=== PATIENT | female | born 1975 | race Caucasian/White ===

== ENCOUNTER 2019-08-28 14:23 | Outpatient (CLI) | payer BC, SELFPAY ==
[2019-08-28 17:03] LABS: Basophils Percent Auto 0.4 % (0.2-1.2); Eosinophils Absolute Auto 0.1 K/mm3 (0-0.3); Eosinophils Percent Auto 1.2 % (0-4.4); Hematocrit 40.6 % (37.0-47.0); Immature Granulocyte Absolute 0.04 K/mm3 (0.00-0.031); Immature Granulocyte Percent A 0.4 % (0-0.5); Lymphocytes Absolute Auto 2.58 K/mm3 (0.9-3.2); Lymphocytes Percent Auto 27.8 % (18.3-44.2); Mean Corpuscular Hemoglobin 29.7 pg (26-34); Mean Corpuscular Volume 92.9 fl (80-100); Mean Platelet Volume 10.5 fl (7.4-10.4); Monocytes Absolute Auto 0.5 K/mm3 (0.1-0.6); Monocytes Percent Auto 5.2 % (2.6-8.5); Platelet Count Result 284 k/mm3 (150-375); Red Blood Count 4.37 M/mm3 (4.2-5.4); Red Cell Distribution Width 14.1 % (11.5-14.5); White Blood Count 9.3 K/mm3 (4.5-10.0)
[2019-08-28 17:16] LABS: D Dimer 0.27 ug/mL (<0.48)
== END 2019-08-28 14:24 | disposition home or self-care (01) ==
PROVIDERS: PCP Registered Nurse; Visit Provider Registered Nurse
DX: M79.604 Pain in right leg (principal)
CPT/HCPCS: 36415; 83735; 85025; 85380

== ENCOUNTER 2019-08-30 13:09 | Outpatient (CLI) | payer BC, SELFPAY ==
[2019-08-30 13:53] LABS: Alanine Aminotransferase 24 U/L (4-35); Albumin Level 4.3 g/dL (3.5-5.1); Alkaline Phosphatase 57 U/L (38-126); Aspartate Amino Transferase 29 U/L (14-36); Bilirubin,Total 0.2 mg/dL (0.2-1.3); Blood Urea Nitrogen 15 mg/dL (7-17); Calcium 9.1 mg/dL (8.4-10.2); Carbon Dioxide 25 mmol/L (22-30); Chloride 104 mmol/L (98-107); Estimated Glomerular Filt Rate > 60; Glucose 98 mg/dL (65-105); Potassium 3.9 mmol/L (3.4-5.0); Sodium 139 mmol/L (137-145)
== END 2019-08-30 13:10 | disposition home or self-care (01) ==
LOC: ANHLAB 13:12
PROVIDERS: PCP Registered Nurse; Visit Provider Registered Nurse
DX: M79.604 Pain in right leg (principal); R25.2 Cramp and spasm
CPT/HCPCS: 36415; 80053

== ENCOUNTER 2020-07-15 01:02 | Outpatient (CLI) | payer BC, SELFPAY ==
[2020-07-15 17:10] LABS: SARS-CoV-2 RNA PCR Negative
== END 2020-07-15 01:03 | disposition home or self-care (01) ==
LOC: ANHCOVIDDT 01:02
PROVIDERS: PCP Registered Nurse; Visit Provider Orthopaedic Surgery
DX: Z01.818 Encounter for other preprocedural examination (principal); Z20.828 Contact with and (suspected) exposure to other viral communicable diseases
CPT/HCPCS: 87635; C9803; U0003

== ENCOUNTER 2020-07-18 00:22 | Day surgery (SDC) | payer BC, SELFPAY ==
[2020-07-08 15:06] VITALS: BMI 25.9
--- NOTE | 2020-07-16 12:32 | WPDANESEPPF ---
Anes - Initial Pre Proc Eval Procedure: Operation Date: 07/18/20 10:30 Proposed Procedures p Left Anterior Tarsal Tunnel Release - Vipin Clark MD Date/Time: 07/16/20 12:32 Surgeon: Vipin Clark MD Pre Op Diagnosis: Left Anterior Tarsal Tunnel Syndrome Patient Data Age: 44 Gender: F Height: 1.7 m Weight: 75 kg Allergies Allergy/AdvReac Type Severity Reaction Status Date / Time codeine Allergy Mild Itching Verified 07/18/20 08:48 oxycodone Allergy Mild ITCHING Verified 07/18/20 08:48 butorphanol AdvReac Unknown FLOATS, Verified 07/18/20 08:48 SICK FEELING Home Medications Medication Instructions Recorded Confirmed Type galcanezumab-gnlm [Emgality Pen] 240 mg SUBCUT ONCE 07/08/20 07/18/20 History paroxetine HCl [Paxil] 20 mg PO QAM 07/08/20 07/18/20 History sumatriptan succinate [Imitrex] 100 mg PO ONCE 07/08/20 07/18/20 History ondansetron HCl [Zofran] 4 mg PO Q8H PRN #10 tablet 07/17/20 Rx tramadol 50 mg PO Q4H PRN #20 tablet 07/17/20 Rx Patient hx anesthesia problems: none Family hx anesthesia problems: none PMFSH Past Medical History Medical History Anxiety Depression Migraine Neuropathy of left superficial peroneal nerve Surgical History Surgical History History of hysterectomy Family History Family History Mother Diabetes mellitus Social History Social History Tobacco type: e-cigarettes/vaping Smoking end date: 07/19/11 Alcohol intake: current Substance use: never Living arrangements: with family Gender identity (if verbalized by the patient): Female Spiritual care concerns: No Anes - Eval Final PreProcedure Day of Procedure 07/16/20 12:32 Patient weight: overweight Heart: regular rate and rhythm Lungs: clear to auscultation and normal air movement Airway: Mallampati scale class II Neurological: alert and oriented Last oral intake: >/= 8 hours ASA classification: II Emergent: no Anesthetic plan: proceed Anesthesia type and monitoring: general LMA and standard monitoring Informed Consent: The patient's anesthetic plan and its attendant risks and benefits were discussed with the patient/family/POA. Questions were solicited and answers provided to the satisfaction of the patient/family/POA.
--- NOTE | 2020-07-16 12:49 | PM.IMHP ---
H&P: HPI History of Present Illness Date/Time: 07/16/20 12:49 Chief Complaint: Left ankle pain Narrative: Jailene Ashton is a 44 year old female With chronic left anterior ankle pain after injury. Patient non responsive to conservative treatment with physical therapy, bracing, home exercises. She responds well to cortisone injections of the anterior tarsal tunnel with approximately 3 to 4 months relief. Patient now presents for operative treatment having failed conservative treatment. Review of Systems Constitutional: Constitutional: Denies fever(s) Eyes: Eyes: Denies blurry vision ENT: Reports Normal hearing present Cardiovascular: Cardiovascular: Denies chest pain and Denies dyspnea Respiratory: Respiratory: Denies dyspnea and Denies wheezing Gastrointestinal: Gastrointestinal: Denies abdominal pain Genitourinary: Genitourinary: Denies urinary urgency Musculoskeletal: Musculoskeletal: Reports as per HPI and Denies numbness Integumentary/Breasts: Skin/Breast: Denies changing lesions and Denies sores Neurologic: Reports Normal hearing present, Denies behavioral changes, Denies confusion, Denies numbness and Denies convulsions Psychiatric: Psychiatric: Denies behavioral changes, Denies confusion and Denies hallucinations Endocrine: Endocrine: Denies heat intolerance Hematologic/Lymphatic: Hematologic/Lymphatic: Denies easy bleeding Allergic/Immunologic: Allergic/Immunologic: Denies wheezing PMF Past Medical History Medical History Anxiety Depression Migraine Neuropathy of left superficial peroneal nerve Surgical History Surgical History History of hysterectomy Family History Family History Mother Diabetes mellitus Social History Social History Tobacco type: e-cigarettes/vaping Smoking end date: 07/19/11 Alcohol intake: current Substance use: never Gender identity (if verbalized by the patient): Female Spiritual care concerns: No Meds Home Medications and Allergies Home Medications Medication Instructions Recorded Confirmed Type galcanezumab-gnlm [Emgality Pen] 240 mg SUBCUT ONCE 07/08/20 07/08/20 History paroxetine HCl [Paxil] 20 mg PO QAM 07/08/20 07/08/20 History sumatriptan succinate [Imitrex] 100 mg PO ONCE 07/08/20 07/08/20 History Allergies Allergy/AdvReac Type Severity Reaction Status Date / Time codeine Allergy Mild Itching Verified 07/08/20 15:08 oxycodone Allergy Mild ITCHING Verified 07/08/20 15:08 butorphanol AdvReac Unknown FLOATS, Verified 05/01/20 14:19 SICK FEELING Exam Const: General: No confusion Orientation/consciousness: No confusion HENMT: Head: normal to inspection, normocephalic and atraumatic Eyes: Conjunctivae: conjunctivae normal Sclera: sclerae normal Neck: Neck: supple and nontender Chest: Chest palpation & inspection: normal inspection of the chest Resp: Effort & Inspection: normal respiratory effort and no audible wheezes Cardio: Rate: regular rate Rhythm: regular rhythm : General: Yes deferred Skin: General skin exam: no rashes or lesions noted Neuro: General: No confusion Extrem: General: capillary refill normal Right upper extremity: normal to inspection Left upper extremity: normal to inspection Right lower extremity: normal to inspection, hip/thigh Details: normal to inspection, ankle Details: no tenderness and no swelling and foot Details: normal capillary refill, toes with normal ROM and vascular exam Details: dorsalis pedis pulse present and normal capillary refill Left lower extremity: hip/thigh Details: normal to inspection, knee Details: normal to inspection and knee ligament exam normal Details: anterior drawer test normal, valgus stress test normal, varus stress test gladis
--- NOTE | 2020-07-18 06:45 | WPDHPUPDATE1 ---
History and Physical Update Update Date/Time: 07/18/20 06:45 History and Physical has been reviewed, including an updated exam of the patient. There are NO changes in the patient's condition. Covid test negative. Risks, benefits, and alternatives have been discussed and questions answered. Patient agrees to proceed with procedure.
[2020-07-18 08:55] VITALS: BP 127/87; PULSE 94; RESP 16; TEMP 37.1; O2SAT 100
[2020-07-18 08:57] VITALS: BMI 27.7
[2020-07-18] MEDS: ACETAMINOPHEN 500 MG TABLET 1000 MG PO (09:22)
[2020-07-18] MEDS: KETOROLAC 15 MG/ML VIAL (*BKC) IV PUSH (09:23)
[2020-07-18] MEDS: LACTATED RINGERS 1,000 ML 30 ML IV CONT ×2 (09:24→11:12)
[2020-07-18] MEDS: ceFAZolin 2 GM/D5W 50 ML 2 GM/50 ML BAG IVPB (09:44)
[2020-07-18] MEDS: BUPIVACAINE HCL 0.5% PF 30 ML VIAL INFILTRATE (10:08)
[2020-07-18 11:00] VITALS: BP 127/73; PULSE 105; RESP 13; TEMP 36.3; O2SAT 100
[2020-07-18 11:15] VITALS: BP 125/71; PULSE 95; RESP 14; O2SAT 100
[2020-07-18 11:32] VITALS: BP 119/58; PULSE 79; RESP 15; O2SAT 98
[2020-07-18 11:35] VITALS: BP 119/76; PULSE 75; RESP 15
[2020-07-18 12:05] VITALS: BP 121/96; PULSE 101; RESP 15
--- NOTE | 2020-07-18 12:26 | SUR.PHASEII ---
POST-OP SHOE PLACED TO LEFT FOOT.
--- NOTE | 2020-07-18 13:15 | P.OP_ITS ---
Procedure Note - Detailed Date of procedure: 07/18/20 Pre-op diagnosis: Left Anterior Tarsal Tunnel Syndrome Post-op diagnosis: same Procedure performed: left ankle anterior tarsal tunnel release Description of procedure: Indications: Patient is a 44-year-old woman with left anterior tarsal tunnel syndrome and foot pain. Forefoot pain with positive injection of the anterior tarsal tunnel. She failed conservative treatment and presents for operative treatment. What was done: Informed consent given by the patient and operative extremity marked in preoperative holding area. Patient received intravenous antibiotics. Taken to the operating room and underwent general anesthesia by anesthesia team. Positioned supine on operating room table. Time-out performed confirming patient, site of surgery, planned. Left lower extremity prepped and draped in usual sterile surgical fashion using ChloraPrep skin solution. foot and ankle exsanguinated and a thigh tourniquet inflated to 250 mmHg. Local anesthetic with 0.5% Marcaine at the incision site. Fifteen blade knife used to make longitudinal incision over the anterolateral ankle and the anterior tarsal tunnel of the left ankle. Hemostasis controlled with electrocautery and bipolar cautery. Dissection carried down to the fascia which was incised in line with skin incision and retractors placed. Careful technique utilized with [place] elevator deep to the retinaculum and ligament divided in line with skin incision. Dissection from proximal to distal with protection of the neurovascular bundle. Tightness of the retinaculum noted. complete release of the nerve from proximal to distal ensured. Ankle taken through range of motion and no other areas of compression noted. Tourniquet released and Bleeding points controlled with bipolar cautery. Wound thoroughly irrigated with antibiotic solution. Subcutaneous tissue repaired with 3 O Monocryl interrupted suture. Skin repaired with 4 O Monocryl running suture. Bulky dressing applied. Patient woken from anesthesia, extubated, taken to recovery in stable condition. All sponge, needle, instrument counts correct at end of case. Implants: none Anesthesia: GLMA Surgeon: Vipin Clark MD Business Administration Program Chair: 1st water quality assistant Estimated blood loss (mL): 10 Tourniquet time (min): 45 Drains: No Packing: No Pathology: none sent Complications: None Condition: stable Disposition: PACU Findings: anterior ankle retinaculum with impingement of deep and superficial peroneal nerve.
== END 2020-07-18 12:27 | disposition home or self-care (01) ==
PROVIDERS: PCP Registered Nurse; Visit Provider Orthopaedic Surgery
PROC: (CPT 28035; principal; 2020-07-18 10:30)
DX: G57.52 Tarsal tunnel syndrome, left lower limb (principal); F41.8 Other specified anxiety disorders; Z87.891 Personal history of nicotine dependence
CPT/HCPCS: 28035; A9270; J0690; J1100; J1885; J2250; J2405; J2704; J3010; J7120

== ENCOUNTER 2020-10-09 17:06 | Outpatient (CLI) | payer BC, SELFPAY ==
[2020-10-09 17:21] LABS: Basophils Absolute Auto 0.04 K/mm3 (0.00-0.10); Basophils Percent Auto 0.6 % (0.0-1.0); Eosinophils Absolute Auto 0.11 K/mm3 (0.02-0.50); Eosinophils Percent Auto 1.6 % (1.0-6.0); Hematocrit 39.8 % (35.0-49.0); Immature Granulocyte Absolute 0.02 K/mm3 (0.00-0.00); Immature Granulocyte Percent A 0.3 % (0.0-0.0); Lymphocytes Absolute Auto 1.74 K/mm3 (1.10-4.50); Lymphocytes Percent Auto 24.6 % (18.0-42.0); Mean Corpuscular HGB Conc 32.7 g/dL (32.0-36.0); Mean Corpuscular Hemoglobin 30.2 pg (27.0-31.0); Mean Corpuscular Volume 92.6 fL (78.0-102.0); Mean Platelet Volume 9.9 fl (9.2-11.8); Monocytes Percent Auto 5.6 % (2.0-11.0); Neutrophils Absolute Auto 4.8 K/mm3 (1.7-7.2); Neutrophils Percent Auto 67.3 % (50.0-70.0); Platelet Count Result 286 K/mm3 (150-420); Red Cell Distribution Width 13.5 % (11.6-14.4); White Blood Count 7.1 K/mm3 (4.8-10.8)
[2020-10-09 17:24] LABS: Add Urine Microscopic? NO; Appearance Urine Clear (Clear); Bilirubin Urine Negative (Negative); Blood Urine Negative (Negative); Color Urine Yellow (Yellow); Glucose Urine UA Negative (Negative); Ketones Urine Negative (Negative); Leukocyte Esterase Ur Negative LEU/UL (Negative); Nitrate Urine Negative (Negative); Protein Urine Negative (Negative); Specific Grav Ur 1.015 (1.010-1.020); Urobilinogen Urine 0.2 mg/dL (0.2-1.0)
[2020-10-09 18:41] LABS: Alanine Aminotransferase 36 U/L (14-59); Albumin Level 3.9 g/dL (3.4-5.0); Alkaline Phosphatase 53 U/L (46-116); Anion Gap 9 mmol/L (8-16); Aspartate Amino Transferase 20 U/L (15-37); Bilirubin,Total 0.5 mg/dL (0.00-1.00); Blood Urea Nitrogen 16 mg/dL (7-18); Calcium 9.1 mg/dL (8.5-10.1); Carbon Dioxide 28 mmol/L (21-32); Chloride 101 mmol/L (98-108); Cholesterol 189 mg/dL (0-200); Estimated Glomerular Filt Rate > 60; Glucose 76 mg/dL (70-99); HDL Direct 66 mg/dL (40-60); LDL Cholesterol Calculated 102 mg/dL (<130); Osmolality Calculated 286 mOsm/kg (285-295); Sodium 138 mmol/L (136-145); Total Protein 6.5 g/dL (6.4-8.2); Triglycerides 106 mg/dL (0-150)
[2020-10-09 18:55] LABS: Free T4 Free Thyroxine Reflex 0.77 ng/dL (0.76-1.46); Thyroid Stimulating Hormone Reflex 0.29 u/IU/mL (0.36-3.74)
== END 2020-10-09 17:07 | disposition home or self-care (01) ==
LOC: CHSLAB 17:09
PROVIDERS: PCP Registered Nurse; Visit Provider Registered Nurse
DX: Z00.00 Encounter for general adult medical examination without abnormal findings (principal); Z68.28 Body mass index [BMI] 28.0-28.9, adult
CPT/HCPCS: 36415; 80053; 80061; 81003; 84439; 84443; 85025

== ENCOUNTER 2021-09-02 14:03 | Outpatient (CLI) | payer OTHER, SELFPAY ==
[2021-09-02 15:33] LABS: Free T4 Free Thyroxine 0.99 ng/mL (0.78-2.19)
[2021-09-02 15:47] LABS: Thyroid Stimulating Hormone 0.321 uIU/mL (0.465-4.680)
[2021-09-05 07:23] LABS: Triiodothyronine T3 Free 2.4 pg/mL (2.3-4.2)
== END 2021-09-02 14:04 | disposition home or self-care (01) ==
LOC: ANHWCLAB 14:05
PROVIDERS: PCP Registered Nurse; Visit Provider Internal Medicine Endocrinology, Diabetes & Metabolism
DX: E04.1 Nontoxic single thyroid nodule (principal)
CPT/HCPCS: 36415; 84439; 84443; 84481

== ENCOUNTER 2021-09-08 10:45 | Outpatient (CLI) | payer OTHER, SELFPAY ==
--- NOTE | ~2021-09-08 | US_ITS ---
EXAMINATION: US thyroid EXAM DATE: 09/08/2021 11:12 INDICATION: E04.1 - Nontoxic single thyroid nodule. TECHNIQUE: Multiple grayscale and Doppler images of the thyroid were obtained (by a technologist who performed the scan) and subsequently reviewed. Individual nodules and recommendations may be reporte d in accordance with TI-RADS system as designated by the 2017 ACR White Paper TI-RADS committee. Héctor strickland is made to prior examination from 11/16/2006. FINDINGS: The right thyroid lobe measures 4.5 x 1.6 x 1.6 cm, the left measuring 5.0 x 1.6 x 1.2 cm, dimensions are mildly enlarged. There is diffusely hypervascular thyroid parenchyma with several left thyroid n odules. 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 Fabienne lar-appearing smaller nodule in the lower pole of this thyroid lobe. There is a prior study from 2006 for comparison. Several nodules were present on that exam, probably the same nodules present today with modest interval growth in nodules and the thyroid overall. IMPRESSION: Multinodular goiter. Return to clinical follow-up and if additional palpable abnormality develops consider repeat ultrasound. Reviewed, dictated and finalized at location A. OPERATOR
== END 2021-09-08 10:46 | disposition home or self-care (01) ==
PROVIDERS: PCP Registered Nurse; Visit Provider Internal Medicine Endocrinology, Diabetes & Metabolism
DX: E04.2 Nontoxic multinodular goiter (principal)
CPT/HCPCS: 76536

== ENCOUNTER 2022-09-07 14:56 | Outpatient (CLI) | payer OTHER, SELFPAY ==
[2022-09-07 17:20] LABS: Free T4 Free Thyroxine 0.99 ng/mL (0.78-2.19)
[2022-09-07 17:33] LABS: Thyroid Stimulating Hormone 0.507 uIU/mL (0.465-4.680)
[2022-09-10 14:31] LABS: Thyroid Stimulating Immunoglob <89 % baseline (<140)
[2022-09-11 04:50] LABS: FSH 20.5 mIU/mL (***)
== END 2022-09-07 14:57 | disposition home or self-care (01) ==
LOC: ANHWCLAB 14:57
PROVIDERS: Visit Provider Internal Medicine Endocrinology, Diabetes & Metabolism
DX: E05.90 Thyrotoxicosis, unspecified without thyrotoxic crisis or storm (principal); E04.1 Nontoxic single thyroid nodule; N95.1 Menopausal and female climacteric states
CPT/HCPCS: 36415; 83001; 84439; 84443; 84445; 84481

== ENCOUNTER 2022-11-26 11:25 | Emergency (ER) | payer OTHER, SELFPAY ==
--- NOTE | ~2022-11-26 | XR_ITS ---
EXAMINATION: XR chest 2V 11/26/2022 12:54 INDICATION: Weakness and dizziness PROCEDURE: 2 view chest COMPARISON: 05/11/2018 FINDINGS: The lungs are clear. The cardiomediastinal silhouette is within normal limits. There are no pleural effusions. There is no pneumothorax suspected. IMPRESSION: 1: NO ACUTE CARDIOPULMONARY DISEASE. Reviewed, dictated and finalized at location L.
--- NOTE | ~2022-11-26 | CT_ITS ---
Non-contrast Head CT History: Vision changes Technique: Axial non-contrast imaging of the brain was performed. Dose reduction technique was used on this scan by utilizing automated exposure control and iterative reconstruction technique. The dose -length product (DLP) was 605.33 mGy-cm. Findings: There is no evidence of intracranial hemorrhage, mass lesion, or acute infarct. Brain par enchyma appears normal. The ventricles and subarachnoid spaces are normal in size. The calvarium ap pears normal. The visualized paranasal sinuses and mastoid air cells are clear. Impression: No significant abnormality seen. Reviewed, dictated and finalized at location . Impression: No significant abnormality seen.
[2022-11-26 11:35] VITALS: BP 138/83; PULSE 97; RESP 18; TEMP 36.6; O2SAT 98
[2022-11-26 11:40] LABS: Glucose Point of Care 64 mg/dl (65-105)
--- NOTE | 2022-11-26 11:45 | PC.NURSE ---
Patient reports feeling shaky. Patient BS 62. Patient given OJ, sundeep crackers and peanut butter. Instructed to finish them.
--- NOTE | 2022-11-26 12:03 | ED.GENADULT ---
HPI - General Adult General Chief complaint: Unspecified Stated complaint: vision problems/palpitations Time Seen by Provider: 11/26/22 12:01 Source: patient and family Mode of arrival: ambulatory Limitations: no limitations History of Present Illness HPI narrative: Patient is a 46-year-old female with a history of hypothyroidism and migraine headache presenting to the emergency department for evaluation of vision changes this morning. Patient states that she was sitting at her desk at work when she suddenly began to experience blurry vision/kaleidoscope vision, that lasted approximately 15 minutes before resolving. Patient denies any headache with this. No neck pain. No extremity weakness or numbness. Patient has been ambulatory without difficulty or ataxia. She denies dizziness. Patient denies nausea or vomiting. She did report palpitations with this event triggered by her anxiety. Patient states she is feeling improved now. She does states that she has had intermittent low blood sugar levels, down to 60s at time. She states that she feels that she has to eat every 2 hours in order to keep from feeling this way. She denies weight loss. She denies diarrhea. No abdominal pain. She denies dysuria or hematuria. Patient reports she has borderline hypothyroidism, is not currently prescribed any medication for this. She denies chest pain, pleuritic pain. No syncopal events. Pt states that she used tanning bed approximately 2 nights ago and is wondering if tanning bed exposure could be causing her symptoms. Related Data Home Medications Medication Instructions Recorded Confirmed paroxetine HCl 20 mg tablet (Paxil) 20 mg PO QAM 07/08/20 09/02/22 melatonin 5 mg tablet 5 mg PO QHS PRN 09/02/22 09/02/22 multivitamin 1 tablet PO DAILY 09/02/22 09/02/22 Allergies Allergy/AdvReac Type Severity Reaction Status Date / Time codeine Allergy Mild Itching Verified 11/26/22 11:26 oxycodone Allergy Mild ITCHING Verified 11/26/22 11:26 butorphanol AdvReac Unknown FLOATS, Verified 11/26/22 11:26 SICK FEELING Review of Systems Review of Systems: CONSTITUTIONAL: Denies fever, chills, or sweats. EYES: Visual changes resolved, redness, or discharge. ENT: Denies rhinorrhea, congestion, sore throat, or otalgia. CARDIOVASCULAR: Denies chest pain, palpitations, or edema. RESPIRATORY: Denies cough or dyspnea. GASTROINTESTINAL: Denies abdominal pain, nausea, vomiting, or diarrhea. GENITOURINARY: Denies dysuria or hematuria. SKIN: Denies rash or itching. MUSCULOSKELETAL: Denies back pain, joint pain, or myalgia. NEUROLOGIC: Denies headache, numbness, or weakness. PSYCHIATRIC: Reports anxiety, denies depression PMFSH Past Medical History Medical History Anxiety Depression Migraine Neuropathy of left superficial peroneal nerve Surgical History Surgical History History of hysterectomy Family History Family History Mother Diabetes mellitus Other Alcoholism Anxiety Depression Hypertension Social History Social History Social History: current smoker Smoking status: Former smoker Tobacco type: e-cigarettes/vaping Smoking end date: 07/19/11 Alcohol intake: current Substance use: never Lack of Transportation: No Lack of Food: Never True Current Housing: I Have Housing Concerned About Future Housing: No Difficulty Paying Gas/Electric Bills: No Difficulty Paying for Meds: No Currently Unemployed: No Education: Associate Degree Difficulty w/ Childcare or Family Care: No Living arrangements: with family Occupation/Education: occupation Gender identity (if verbalized by the patient): Female Spiritual care concerns: No Exam Narrative: GENERAL: Awake, elysia
--- NOTE | 2022-11-26 12:30 | ECG_ITS ---
Measurements Intervals [place] Rate: 73 P: 53 AR: 156 QRS: 55 QRSD: 83 T: 53 QT: 395 QTc: 436 Interpretive Statements SINUS RHYTHM LOW QRS VOLTAGE IN PRECORDIAL LEADS BASELINE ARTIFACT- I, III, AVL BORDERLINE ECG NO PREVIOUS ECG AVAILABLE FOR COMPARISON Electronically Signed On 11-26-2022 13:48:50 CDT by Sachin Meza D.O.
[2022-11-26] MEDS: SODIUM CHLORIDE 0.9% IV 1,000 ML 999 ML IV CONT (13:16)
[2022-11-26 13:34] LABS: Basophils Absolute Auto 0.1 K/mm3 (0.0-0.1); Basophils Percent Auto 0.6 % (0.2-1.2); Eosinophils Absolute Auto 0.2 K/mm3 (0-0.3); Eosinophils Percent Auto 1.8 % (0-4.4); Hematocrit 42.3 % (37.0-47.0); Immature Granulocyte Absolute 0.03 K/mm3 (0.00-0.031); Immature Granulocyte Percent A 0.3 % (0-0.5); Lymphocytes Absolute Auto 1.49 K/mm3 (0.9-3.2); Mean Corpuscular HGB Conc 33.1 g/dl (32-36); Mean Corpuscular Hemoglobin 30.4 pg (26-34); Mean Corpuscular Volume 91.8 fl (80-100); Mean Platelet Volume 10.3 fl (7.4-10.4); Monocytes Absolute Auto 0.4 K/mm3 (0.1-0.6); Monocytes Percent Auto 4.3 % (2.6-8.5); Neutrophils Absolute Auto 7.2 K/mm3 (1.3-6.7); Platelet Count Result 357 k/mm3 (150-375); Red Blood Count 4.61 M/mm3 (4.2-5.4); Red Cell Distribution Width 14.5 % (11.5-14.5); White Blood Count 9.3 K/mm3 (4.5-10.0)
[2022-11-26 13:45] LABS: Anion Gap 9 mmol/L (8-16); Blood Urea Nitrogen 22 mg/dL (7-17); Calcium 8.9 mg/dL (8.4-10.2); Carbon Dioxide 25 mmol/L (22-30); Chloride 103 mmol/L (98-107); Estimated CRCL calculation 82 ml/min; Estimated Glomerular Filt Rate > 60; Glucose 93 mg/dL (65-110); Potassium 4.2 mmol/L (3.4-5.0); Sodium 137 mmol/L (137-145)
[2022-11-26 13:56] LABS: Troponin I < 0.012 ng/mL (0.000-0.034)
[2022-11-26 14:15] LABS: Thyroid Stimulating Hormone 0.583 uIU/mL (0.465-4.680)
[2022-11-26 14:22] LABS: Hemoglobin A1C 5.3 % (<5.7)
[2022-11-26 15:27] LABS: Troponin I < 0.012 ng/mL (0.000-0.034)
[2022-12-03 08:26] LABS: Metanephrine, Free 31 pg/mL (<=57); Normetanephrine, Free 175 pg/mL (<=148); Total, Free (MN + NMN) 206 pg/mL (<=205)
== END 2022-11-26 16:17 | disposition home or self-care (01) ==
PROVIDERS: Emergency Provider Emergency Medicine; PCP Registered Nurse
DX: H53.8 Other visual disturbances (principal); E03.9 Hypothyroidism, unspecified; F41.9 Anxiety disorder, unspecified; F32.A Depression, unspecified; Z87.891 Personal history of nicotine dependence; Z79.899 Other long term (current) drug therapy
CPT/HCPCS: 36415; 70450; 71046; 80048; 82948; 83036; 83835; 84443; 84484; 85025; 93005; 96360; 96361; 99284; J7030

== ENCOUNTER → 2023-07-15 13:45 | Outpatient (CLI) | payer OTHER, SELFPAY ==
--- NOTE | ~2023-07-15 | XR_ITS ---
XR cervical spine 4-5V 07/15/2023 14:01 Indication: Neck pain Procedure: 5 views of the cervical spine Comparison: No prior studies for comparison. Findings: Vertebral body heights are maintained. Normal cervical lordosis. No fracture or traumatic m alalignment. There is carotid atherosclerosis. Odontoid process is normal. Lateral masses normally al igned. There is mild multilevel uncinate and facet hypertrophy. Lung apices are normal. Impression: 1: Mild cervical spondylosis. Reviewed, dictated and finalized at location L. N RESOURCES COMPLIANCE MANAGER Impression: 1: Mild cervical spondylosis.
== END ==
PROVIDERS: PCP Physical Medicine & Rehabilitation; Visit Provider Physical Medicine & Rehabilitation
DX: M43.02 Spondylolysis, cervical region (principal)
CPT/HCPCS: 72050

== ENCOUNTER 2023-12-01 12:40 | Outpatient (CLI) | payer OTHER, SELFPAY ==
--- NOTE | ~2023-12-01 | MR_ITS ---
MRI of the brain Clinical History: Right-sided paresthesias Technique: Axial and sagittal T1-weighted images were acquired. These were followed by axial T2-weigh sharif, diffusion weighted, gradient, and FLAIR images. COMPARISON: 08/10/2008 Findings: No significant signal abnormality seen in the brain parenchyma. No acute infarct, intracran ial hemorrhage, or mass lesion. Ventricles and subarachnoid spaces are unremarkable. Orbits are unremarkable. Paranasal sinuses and m astoid air cells are clear. Major intracranial flow voids appear intact. Sagittal midline structures are intact. IMPRESSION: Normal exam. Reviewed, dictated and finalized at location M. IMPRESSION: Normal exam.
== END 2023-12-01 12:41 ==
PROVIDERS: PCP Student in an Organized Health Care Education/Training Program; Visit Provider Student in an Organized Health Care Education/Training Program
DX: R20.2 Paresthesia of skin (principal)
CPT/HCPCS: 70551

== ENCOUNTER 2023-12-04 11:10 | Outpatient (CLI) | payer OTHER, SELFPAY ==
--- NOTE | ~2023-12-04 | XR_ITS ---
EXAMINATION: XR lumbar spine 2-3V DATE: 12/04/2023 11:47 INDICATION: Low back pain. TECHNIQUE: 3 views of lumbar spine including standing views were obtained. COMPARISON: Chest 2 views 11/26/2022 FINDINGS: There is 4 degrees dextrocurvature of lumbar spine. There is a chronic compression fracture of T12 with 1/5 loss of height. There is mildly decreased disc height at L3-L4 and L4-L5. S1 is a tr ansitional segment. There is multilevel mild to moderate facet joint osteoarthritis. IMPRESSION: 1. Mild lumbar spondylosis. Reviewed, dictated and finalized at location A. IMPRESSION: 1. Mild lumbar spondylosis.
--- NOTE | ~2023-12-04 | XR_ITS ---
EXAMINATION: XR thoracic spine 2V DATE: 12/04/2023 11:47 INDICATION: Mid back pain. TECHNIQUE: 3 views of thoracic spine including standing views were obtained. COMPARISON: None. FINDINGS: There is 6 degrees levocurvature of thoracic spine. There is mild chronic anterior wedging of T12 vertebral body. There is mildly decreased disc height at T11-T12. There are endplate osteophyt es at most levels. IMPRESSION: 1. Mild thoracic spondylosis. Reviewed, dictated and finalized at location A.
--- NOTE | ~2023-12-04 | XR_ITS ---
EXAMINATION: XR pelvis 1-2V DATE: 12/04/2023 11:47 INDICATION: Bilateral sacroiliac joint pain. TECHNIQUE: An anteroposterior view of the pelvis was obtained. COMPARISON: None. FINDINGS: Bone alignment is normal. No fracture. There is mild osteoarthritis of the sacroiliac joint s. The hip joints are normal. IMPRESSION: 1. Mild osteoarthritis of the sacroiliac joints. Reviewed, dictated and finalized at location A.
--- NOTE | ~2023-12-04 | XR_ITS ---
EXAMINATION: XR_CERV2-3V_CR DATE: 12/04/2023 11:47 INDICATION: Neck pain. TECHNIQUE: 3 views of cervical spine including standing views were obtained. COMPARISON: Cervical spine radiographs 07/15/2023 FINDINGS: Bone alignment is normal. Vertebral body heights and intervertebral disc heights are normal . There is multilevel [id number] facet joint osteoarthritis. No central canal stenosis or preve rtebral soft tissue swelling. IMPRESSION: 1. Cervical facet joint osteoarthritis. Reviewed, dictated and finalized at location A.
== END 2023-12-04 11:11 ==
PROVIDERS: PCP Chiropractor; Visit Provider Chiropractor
DX: M43.04 Spondylolysis, thoracic region (principal); M43.06 Spondylolysis, lumbar region; M47.892 Other spondylosis, cervical region; M46.1 Sacroiliitis, not elsewhere classified
CPT/HCPCS: 72040; 72070; 72100; 72170

== ENCOUNTER 2023-12-15 07:45 | Outpatient (CLI) | payer OTHER, SELFPAY ==
[2023-12-15 08:18] LABS: Basophils Absolute Auto 0.1 K/mm3 (0.0-0.1); Basophils Percent Auto 0.6 % (0.2-1.2); Eosinophils Absolute Auto 0.3 K/mm3 (0-0.3); Hematocrit 43.9 % (37.0-47.0); Hemoglobin 14.2 g/dL (12.0-15.0); Immature Granulocyte Absolute 0.02 K/mm3 (0.00-0.031); Immature Granulocyte Percent A 0.2 % (0-0.5); Lymphocytes Absolute Auto 2.54 K/mm3 (0.9-3.2); Lymphocytes Percent Auto 28.2 % (18.3-44.2); Mean Corpuscular HGB Conc 32.3 g/dl (32-36); Mean Corpuscular Hemoglobin 29.7 pg (26-34); Mean Corpuscular Volume 91.8 fl (80-100); Monocytes Absolute Auto 0.6 K/mm3 (0.1-0.6); Monocytes Percent Auto 6.4 % (2.6-8.5); Neutrophils Absolute Auto 5.5 K/mm3 (1.3-6.7); Neutrophils Percent Auto 61.6 % (45.5-73.1); Platelet Count Result 330 k/mm3 (150-375); Red Blood Count 4.78 M/mm3 (4.2-5.4); Red Cell Distribution Width 14.5 % (11.5-14.5)
[2023-12-15 08:28] LABS: Hemoglobin A1C 5.2 % (<5.7)
[2023-12-15 08:46] LABS: Alanine Aminotransferase 45 U/L (6-35); Albumin Level 4.5 g/dL (3.5-5.1); Alkaline Phosphatase 57 U/L (38-126); Anion Gap 5 mmol/L (4-12); Aspartate Amino Transferase 52 U/L (14-36); Bilirubin,Total 0.6 mg/dL (0.2-1.3); Blood Urea Nitrogen 17 mg/dL (7-17); Carbon Dioxide 28 mmol/L (22-30); Chloride 104 mmol/L (98-107); Estimated Glomerular Filt Rate > 60; Glucose 86 mg/dL (65-110); Potassium 3.8 mmol/L (3.4-5.0); Sodium 137 mmol/L (137-145)
[2023-12-15 09:14] LABS: Thyroid Stimulating Hormone < 0.015 uIU/mL (0.465-4.680)
[2023-12-16 13:23] LABS: SS-A <1.0 NEG AI (<1.0 NEG); SS-B <1.0 NEG AI (<1.0 NEG)
[2023-12-17 08:18] LABS: Lead, Blood <1.0
[2023-12-18 12:44] LABS: Vitamin B6 71.8 ng/mL (2.1-21.7)
[2023-12-20 08:21] LABS: Vitamin B1 32
[2023-12-20 08:26] LABS: Arsenic, Blood <10
[2023-12-20 08:27] LABS: Collection Sample Venous; Mercury, Blood <5
== END 2023-12-15 07:46 | disposition home or self-care (01) ==
LOC: ANHLAB 07:47
PROVIDERS: PCP Registered Nurse; Visit Provider Student in an Organized Health Care Education/Training Program
DX: R20.0 Anesthesia of skin (principal)
CPT/HCPCS: 36415; 80053; 82175; 82525; 82607; 83036; 83655; 83825; 84207; 84425; 84443; 84630; 85025; 86038; 86039; 86235; 86334; 86335

== ENCOUNTER 2023-12-22 15:31 | Outpatient (CLI) | payer OTHER, SELFPAY ==
[2023-12-22 17:56] LABS: Thyroid Stimulating Hormone 0.355 uIU/mL (0.465-4.680)
[2023-12-29 18:58] LABS: Thyroid Stimulating Immunoglob <89 % baseline (<140)
[2023-12-31 18:03] LABS: Thyrotropin Receptor Antibody 1.15 IU/L (< OR = 2.00)
== END 2023-12-22 15:32 | disposition home or self-care (01) ==
LOC: ANHLAB 15:32
PROVIDERS: PCP Registered Nurse; Visit Provider Internal Medicine Endocrinology, Diabetes & Metabolism
DX: E04.9 Nontoxic goiter, unspecified (principal); E05.90 Thyrotoxicosis, unspecified without thyrotoxic crisis or storm
CPT/HCPCS: 36415; 83519; 84439; 84443; 84445; 84481

== ENCOUNTER 2024-01-06 07:52 | Outpatient (CLI) | payer OTHER, SELFPAY ==
[2024-01-06 08:47] LABS: Cholesterol 171 mg/dL (0-200); HDL Direct 78 mg/dL; Triglycerides 112 mg/dL (<150)
[2024-01-06 08:58] LABS: LDL Cholesterol Direct 78 mg/dL
[2024-01-06 09:13] LABS: Free T4 Free Thyroxine 0.96 ng/mL (0.78-2.19)
[2024-01-06 09:16] LABS: Thyroid Stimulating Hormone 0.454 uIU/mL (0.465-4.680)
[2024-01-09 05:08] LABS: Triiodothyronine T3 Free 3.2 pg/mL (2.3-4.2)
[2024-01-12 21:54] LABS: Metanephrine, Free <25 pg/mL (<=57); Normetanephrine, Free 122 pg/mL (<=148); Total, Free (MN + NMN) 122 pg/mL (<=205)
== END 2024-01-06 07:53 | disposition home or self-care (01) ==
LOC: ANHLAB 07:54
PROVIDERS: PCP Registered Nurse; Visit Provider Internal Medicine Endocrinology, Diabetes & Metabolism
DX: E04.1 Nontoxic single thyroid nodule (principal); R79.89 Other specified abnormal findings of blood chemistry; R20.2 Paresthesia of skin
CPT/HCPCS: 36415; 80061; 83835; 84439; 84443; 84481

== ENCOUNTER 2024-02-10 13:28 | Outpatient (CLI) | payer OTHER, SELFPAY ==
--- NOTE | ~2024-02-10 | MM_ITS ---
EXAMINATION: MM scrn matt implant BI w guevara HISTORY: Screening mammogram TECHNIQUE: Craniocaudal and mediolateral oblique 3-D tomosynthesis images with implant displacement a nd synthetic 2-D images were generated. Craniocaudal and mediolateral oblique views of the breasts wi thout implant displacement were obtained using full field digital mammography. CAD analysis was submi tted and interpreted. COMPARISON: 05/31/2017 BREAST PARENCHYMAL COMPOSITION: Not dense: There are scattered areas of fibroglandular density. FINDINGS: There is no evidence of suspicious mass, calcification, or architectural distortion to sugg est malignancy in either breast. There has been no suspicious interval change. IMPRESSION: 1. No mammographic evidence of malignancy. 2. Recommend routine screening mammography in one year. BI-RADS Category 1: Negative Reviewed, dictated and finalized at location B.
== END 2024-02-10 13:29 ==
LOC: MICIMG 13:29
PROVIDERS: PCP Registered Nurse; Visit Provider Registered Nurse
DX: Z12.31 Encounter for screening mammogram for malignant neoplasm of breast (principal)
CPT/HCPCS: 77063; 77067

== ENCOUNTER 2024-03-28 09:58 | Outpatient (CLI) | payer OTHER, SELFPAY ==
--- NOTE | 2024-03-28 11:30 | NEURO_ITS ---
Impression: # Complains of paresthesia of right upper and lower extremities. # Normal motor/sensory Nerve Conduction Studies of all extremities. # Normal needle/EMG exam. # Clinical correlation recommended. Nerve Conduction Studies Anti Sensory Summary Table Stim Site NR Peak (ms) P-T Amp (?V) Site1 Site2 Delta-P (ms) Dist (cm) Esequiel (m/s) Left Median Anti Sensory (2-3nd Digit) Wrist 3.3 65.1 Wrist 2-3nd Digit 3.3 14.0 42 Wrist 3.3 75.1 Wrist 2-3nd Digit 3.3 14.0 42 Right Median Anti Sensory (2-3nd Digit) Wrist 3.1 76.1 Wrist 2-3nd Digit 3.1 14.0 45 Wrist 3.0 68.6 Wrist 2-3nd Digit 3.1 14.0 45 Left Radial Anti Sensory (Base 1st Digit) Wrist 2.2 30.1 Wrist Base 1st Digit 2.2 0.0 Right Radial Anti Sensory (Base 1st Digit) Wrist 2.3 33.8 Wrist Base 1st Digit 2.3 0.0 Left Sup Fibular Anti Sensory (Ant Lat Mall) 14 cm 3.3 16.0 14 cm Ant Lat Mall 3.3 16.0 48 Right Sup Fibular Anti Sensory (Ant Lat Mall) 14 cm 3.3 8.6 14 cm Ant Lat Mall 3.3 16.0 48 Left Sural Anti Sensory (Lat Mall) Calf 3.9 10.8 Calf Lat Mall 3.9 17.0 44 Right Sural Anti Sensory (Lat Mall) Calf 3.8 9.9 Calf Lat Mall 3.8 17.0 45 Left Ulnar Anti Sensory (5th Digit) Wrist 2.5 34.2 Wrist 5th Digit 2.5 14.0 56 Right Ulnar Anti Sensory (5th Digit) Wrist 2.9 51.0 Wrist 5th Digit 2.9 14.0 48 Motor Summary Table Stim Site NR Onset (ms) O-P Amp (mV) Site1 Site2 Delta-0 (ms) Dist (cm) Esequiel (m/s) Left Median Motor (Abd Poll Brev) Wrist 3.1 6.7 Elbow Wrist 4.9 29.0 59 Elbow 8.0 5.6 Right Median Motor (Abd Poll Brev) Wrist 2.6 7.9 Elbow Wrist 4.7 27.0 57 Elbow 7.3 6.6 Left Peroneal Motor (Vastus Med) Ankle 3.9 4.8 Popit Ankle 7.6 40.0 53 Popit 11.5 3.5 Right Peroneal Motor (Vastus Med) Ankle 3.9 4.8 Popit Ankle 8.7 41.0 47 Popit 12.6 3.8 Left Tibial Motor (Abd Smith Brev) Ankle 3.9 5.1 Knee Ankle 8.2 42.0 51 Knee 12.1 1.5 Right Tibial Motor (Abd Smith Brev) Ankle 4.1 5.9 Knee Ankle 8.4 41.0 49 Knee 12.5 3.7 Left Ulnar Motor (Abd Dig Minimi) Wrist 2.8 5.7 A Elbow Wrist 5.1 29.0 57 A Elbow 7.9 5.5 B Elbow Wrist 3.5 21.0 60 B Elbow 6.3 6.7 Right Ulnar Motor (Abd Dig Minimi) Wrist 2.3 6.7 A Elbow Wrist 5.1 29.0 57 A Elbow 7.4 5.8 B Elbow Wrist 3.7 21.0 57 B Elbow 6.0 4.8 F Wave Studies NR F-Lat (ms) L-R F-Lat (ms) Left Median (Mrkrs) (Abd Poll Brev) 26.25 1.47 Right Median (Mrkrs) (Abd Poll Brev) 27.72 1.47 Left Peroneal (Mrkrs) (EDB) 50.00 0.00 Right Peroneal (Mrkrs) (EDB) 50.00 0.00 Left Tibial (Mrkrs) (Abd Hallucis) 51.30 0.31 Right Tibial (Mrkrs) (Abd Hallucis) 51.61 0.31 Left Ulnar (Mrkrs) (Abd Dig Min) 27.42 0.53 Right Ulnar (Mrkrs) (Abd Dig Min) 27.95 0.53 EMG Side Muscle Nerve Root Ins Act Fibs Amp Dur Recrt Comment Right 1stDorInt Ulnar C8-T1 Nml Nml Nml Nml Nml Right Ext Indicis Radial (Post Int) C7-8 Nml Nml Nml Nml Nml Right Ext Digitorum Radial (Post Int) C7-8 Nml Nml Nml Nml Nml Right BrachioRad Radial C5-6 Nml Nml Nml Nml Nml Right PronatorTeres Median C6-7 Nml Nml Nml Nml Nml Right Abd Poll Brev Median C8-T1 Nml Nml Nml Nml Nml
== END 2024-03-28 09:59 | disposition home or self-care (01) ==
PROVIDERS: PCP Registered Nurse; Visit Provider Student in an Organized Health Care Education/Training Program
DX: R20.2 Paresthesia of skin (principal)
CPT/HCPCS: 95886; 95913